=== PATIENT | female | born 1995 | race Caucasian/White ===

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

== ENCOUNTER 2017-05-13 11:03 | Emergency (ER) | payer OTHER ==
[2017-05-13 11:25] VITALS: BP 134/74; PULSE 110; RESP 18; TEMP 97.9
--- NOTE | 2017-05-13 12:22 | ED ---
Lower Extremity Injury HPI - General Chief Complaint: Extremity Injury, Lower Stated Complaint: LEFT HIP/LEG PAIN Time Seen by Provider: 05/13/17 11:56 Source: patient, RN notes reviewed, old records reviewed Mode of arrival: ambulatory Limitations: no limitations - History of Present Illness Initial Comments: 22-year-old female presents emergency Department chief complaint of left hip and pelvis pain. Patient reports that she's been having the pain for the past 4 days. She went to her chiropractor who did some "adjustments". Patient reports that she is not feeling any better after that. She reports her chiropractors concerned also because she's been having prolonged vaginal bleeding. Patient reports that she's been having continuous vaginal bleeding for the past few months. Patient is concerned of possible ovarian cyst. Denies any nausea or vomiting. Denies any dysuria or vaginal discharge. She reports that her left hip pain and groin pain seems worse with movement. No x- rays were completed a chiropractor. Patient reports that the pain is worse with standing. Denies any peripheral paresthesias. Patient denies any recent fever, chills, shortness of breath, chest pain, back pain, abdominal pain, nausea vomiting, numbness or tingling, dysuria or hematuria, constipation or diarrhea, headaches or visual changes, or any other current symptoms - Related Data Previous Rx's Medication Instructions Recorded Ibuprofen [Motrin] 600 mg PO Q6HR PRN #20 tab 05/13/17 Allergies Allergy/AdvReac Type Severity Reaction Status Date / Time latex Allergy Rash/Hives Verified 05/13/17 12:19 Review of Systems ROS Statement: Those systems with pertinent positive or pertinent negative responses have been documented in the HPI. ROS Other: All systems not noted in ROS Statement are negative. Past Medical History Past Medical History: No Reported History History of Any Multi-Drug Resistant Organisms: MRSA Date of last positivie culture/infection: 07/31/15 MDRO Source:: Buttock Past Surgical History: Adenoidectomy, Tonsillectomy Past Anesthesia/Blood Transfusion Reactions: No Reported Reaction Past Psychological History: No Psychological Hx Reported Smoking Status: Current every day smoker Past Alcohol Use History: None Reported Past Drug Use History: None Reported - Past Family History Mother Family Medical History: No Reported History General Exam - General Exam Comments Initial Comments: His is a 22-year-old female. No distress. Limitations: no limitations General appearance: alert, in no apparent distress Head exam: Present: atraumatic, normocephalic, normal inspection Eye exam: Present: normal appearance, PERRL, EOMI. Absent: scleral icterus, conjunctival injection, periorbital swelling ENT exam: Present: normal exam, mucous membranes moist Neck exam: Present: normal inspection. Absent: tenderness, meningismus, lymphadenopathy Respiratory exam: Present: normal lung sounds bilaterally. Absent: respiratory distress, wheezes, rales, rhonchi, stridor Cardiovascular Exam: Present: regular rate, normal rhythm, normal heart sounds. Absent: systolic murmur, diastolic murmur, rubs, gallop, clicks GI/Abdominal exam: Present: soft, normal bowel sounds, other (Patient has a minimal left lower quadrant tenderness on exam.). Absent: distended, tenderness , guarding, rebound, rigid Extremities exam: Present: normal inspection, full ROM, normal capillary refill. Absent: tenderness, pedal edema, joint swelling, calf tenderness Left Hip exam: Present: normal inspection, full ROM, tenderness (Patient reports tenderness and pain with range of motion of her hip. She does have full range of motion.) Upper Leg exam: Present: normal inspection, full ROM Knee exam: Present: normal inspection, full ROM Lower Leg exam: Present: normal inspection, full ROM Back exam: Present: normal inspection Neurological exam: Present: alert, oriented X3, CN II-XII intact Psychiatric exam: Present: normal affect, normal mood Skin exam: Present: warm, dry, intact, normal color. Absent: rash Course Vital Signs 05/13/17 11:21 Temperature 97.9 F Pulse Rate 110 H Respiratory 18 Rate Blood Pressure 134/74 O2 Sat by Pulse 100 Oximetry Medical Decision Making - Medical Decision Making 22-year-old female presents emergency Department chief complaint of left hip and pelvis pain. Patient reports that she's been having the pain for the past 4 days. She went to her chiropractor who did some "adjustments". Patient reports that she is not feeling any better after that. She reports her chiropractors concerned also because she's been having prolonged vaginal bleeding. Patient reports that she's been having continuous vaginal bleeding for the past few months. Patient is concerned of possible ovarian cyst. Denies any nausea or vomiting. Denies any dysuria or vaginal discharge. She reports that her left hip pain and groin pain seems worse with movement. Patient hip placed through full ROM testing, no pain with passive movement. Patient has minimal LLQ tenderness. COncern for prolonged bleeding and tenderness I completed US. US shows evidence of right ovarian cyst. No left Cyst. No uterine abnormalities. Left hip xray and pelvis is normal. No deformity. Discussed likely musclulaskeletal related and from within the labrum of patient hip joint. Urinalysis is negative is well. Discussed antiinflammatory medication and follow up with PCP. REturn parameters discussed. - Lab Data Lab Results 05/13/17 Range/Units 12:37 Urine Color Yellow Urine Appearance Clear (Clear) Urine pH 5.5 (5.0-8.0) Ur Specific [place] 1.017 (1.001-1.035) Urine Protein Negative (Negative) Urine Glucose (UA) Negative (Negative) Urine Ketones Negative (Negative) Urine Blood Negative (Negative) Urine Nitrite Negative (Negative) Urine Bilirubin Negative (Negative) Urine Urobilinogen <2.0 (<2.0) mg/dL Ur Leukocyte Esterase Negative (Negative) - Radiology Data Radiology results: report reviewed complex fluid within endometrial canal, may represent blood. Right ovarian cyst. PElvis and hip X-ray are negative . Disposition Clinical Impression: Strain of left hip Disposition: HOME SELF-CARE Condition: Good Instructions: Hip Pain (ED) Additional Instructions: Patient advised to follow-up with primary care provider. Advised to do warm compresses over the area. Passive stretching encourage. Return to the emergency department if any alarming signs or symptoms occur. Prescriptions: Ibuprofen [Motrin] 600 mg PO Q6HR PRN #20 tab PRN Reason: Pain Referrals: Celina Vences MD [Primary Care Provider] - 1-2 days Levar Navarro DO [Doctor of Osteopathic Medicine] - 1-2 days Time of Disposition: 13:45
--- NOTE | 2017-05-13 12:36 | XR ---
EXAMINATION TYPE: XR Hip LT and AP Pelvis , 3 VIEWS DATE OF EXAM ORDERED: 05/13/2017 HISTORY: Pain. COMPARISON: None. FINDINGS: Osseous structures about the pelvis are normal. No fracture, dislocation or other acute os seous lesion is seen. Both hip joints appear well maintained. IMPRESSION: NORMAL STUDY.
[2017-05-13 12:41] LABS: Appearance,Urine Clear (Clear); Bilirubin,Urine Negative (Negative); Blood,Urine Negative (Negative); Color,Urine Yellow; Glucose,Urine (UA) Negative (Negative); Ketones,Urine Negative (Negative); Leukocyte Esterase,Urine Negative (Negative); Nitrite,Urine Negative (Negative); PH, Urine 5.5 (5.0-8.0); Protein,Urine Negative (Negative); Specific Gravity,Urine 1.017 (1.001-1.035); Urobilinogen,Urine <2.0 mg/dL (<2.0)
--- NOTE | 2017-05-13 13:30 | US ---
EXAMINATION TYPE: US transvaginal DATE OF EXAM: 05/13/2017 COMPARISON: NONE CLINICAL HISTORY: Pain. Left pelvic/hip/leg pain x 1 week that has gotten worse in the past few days, vaginal bleeding for the past 10 months ever since patient gave in July 2016, 1, para 1 TECHNIQUE: Transvaginal (TV) ER exam Date of LMP: Unknown EXAM MEASUREMENTS: Uterus: 8.5 x 4.1 x 5.5 cm Endometrial Stripe: 0.3 cm Right Ovary: 4.3 x 3.5 x 4.2 cm Left Ovary: 2.5 x 1.8 x 2.0 cm 1. Uterus: anteverted, wnl 2. Endometrium: complex fluid within fundal portion of endo with 1.1cm hyperechoic non vascular area , ??? blood products vs. other 3. Right Ovary: 2.9 x 3.0 x 2.9cm cyst 4. Left Ovary: wnl Spectral, color and waveform doppler imaging shows good arterial and venous flow within the ovaries ; there is no evidence for ovarian torsion. 5. Bilateral Adnexa: wnl 6. Posterior cul-de-sac: small amount of free fluid IMPRESSION: 1. COMPLEX FLUID WITHIN THE ENDOMETRIAL CANAL MAY REPRESENT BLOOD. 2. RIGHT OVARIAN CYST.
== END 2017-05-13 14:05 | disposition home or self-care (01) ==
LOC: EC 11:03
DX: S76.012A Strain of muscle, fascia and tendon of left hip, initial encounter (principal); N83.201 Unspecified ovarian cyst, right side; F17.200 Nicotine dependence, unspecified, uncomplicated; Z86.14 Personal history of Methicillin resistant Staphylococcus aureus infection; Z91.040 Latex allergy status; X58.XXXA Exposure to other specified factors, initial encounter
CPT/HCPCS: 73502; 76830; 81003; 87086; 93975; 99284

== ENCOUNTER 2019-12-30 10:51 | Outpatient (CLI) | payer OTHER ==
[2019-12-30 13:00] VITALS: BP 118/71; PULSE 81; RESP 20; TEMP 98.4
--- NOTE | 2019-12-30 18:33 | P.MSEPDOC ---
Presenting Problems - Arrival Data Date of Arrival on Unit: 12/30/19 Time of Arrival on Unit: 10:54 Mode of Transport: Ambulatory - Complaint OB-Reason for Admission/Chief Complaint: Other Comment: pt arrived c/o abd discomfort and discomfort in her legs Medical History - Information : 2 Para: 1 Term: 1 : 0 Abortions: Spontaneous or Elective: 0 Number of Living Children: 1 - Gestational Age Gestational Age by EARNESTINE (wks/days): 20 Weeks and 5 Days Review of Systems - Review of Systems Constitutional: No problems Breast: No problems ENT: No problems Cardiovascular: No problems Respiratory: No problems Gastrointestinal: No problems Genitourinary: No problems Musculoskeletal: No problems Neurological: No problems Skin: No problems Vital Signs - Temperature Temperature: 98.4 F Temperature Source: Oral - Pulse Right Brachial Pulse Rate: 81 Pulse Assessment Method: Automatic Cuff - Respirations Respiratory Rate: 20 Oxygen Delivery Method: Room Air O2 Sat by Pulse Oximetry: 98 - Blood Pressure Right Arm Blood Pressure: 118/71 Blood Pressure Mean: 86 Blood Pressure Source: Automatic Cuff Medical Screen Scoring (Pre) - Cervical Exam Dilation: Exam Deferred Effacement: Exam Deferred Membranes: Intact - Uterine Contractions Frequency: N/A Duration: N/A Intensity: N/A - Maternal Vital Signs Maternal Temperature: N/A Signs of Preeclampsia: N/A Maternal Respirations: N/A - Maternal Trauma Maternal Trauma: N/A - Assessment - Baby A Baseline FHR: 136 Position: N/A Station: N/A - Total Score - Baby A Total Score - Baby A: 0 - Total Score - Baby B Total Score - Baby B: 0 - Total Score - Baby C Total Score - Baby C: 0 - Level of Risk - Baby A Level of Risk - Baby A: Low (0-5) - Level of Risk - Baby B Level of Risk - Baby B: Low (0-5) - Level of Risk - Baby C Level of Risk - Baby C: Low (0-5) Physician Notification (Pre) - Physician Notified Physician Notified Date: 12/30/19 Physician Notified Time: 12:42 New Order Received: Yes - Notification Comment Comment: send pt to the ER for further evualtion on leg pain Disposition - Disposition OB Disposition: Transfer to other dept./facility, Discharge to home Discharge Date: 12/30/19 Discharge Time: 12:50 I agree with the RN Medical Screening Exam: Yes Risk & Benefit of care provided described in d/c instruction: Yes Diagnosis: FALSE LABOR BEFORE 37 COMPLETED WEEKS OF GEST, SECOND TRI (Patient presented with complaints of lower pelvic discomfort and also leg pain. Obstetrical evaluation shows no evidence of labor, therefore patient was sent to the emergency department for evaluation of her leg complaints to rule out DVT.)
== END 2019-12-30 12:50 | disposition home or self-care (01) ==
LOC: FBPOP 10:51
PROVIDERS: ATTEND Obstetrics & Gynecology
DX: O47.02 False labor before 37 completed weeks of gestation, second trimester (principal); Z3A.20 20 weeks gestation of pregnancy
CPT/HCPCS: 99213

== ENCOUNTER 2019-12-30 12:53 | Emergency (ER) | payer BC, OTHER ==
[2019-12-30] MEDS ORDERED: SODIUM CHLORIDE 0.9% 1,000 ML IV STA (14:05)
--- NOTE | 2019-12-30 14:11 | ED ---
Abdominal Pain HPI - General Chief Complaint: Abdominal Pain Stated Complaint: Leg& Abd Pain-20 wks Time Seen by Provider: 12/30/19 13:53 Source: patient Mode of arrival: ambulatory Limitations: no limitations - History of Present Illness Initial Comments: 24-year-old female patient presents to the emergency department today for evaluation of abdominal pain. Patient is 20 weeks , . She was evaluated in the labor and delivery unit had monitoring for 2 hours, then was discharged. She reports that the pain is mostly over her lower abdomen. States it is sharp in nature. States she is having some low back pain with this. Reports some nausea with no episodes of vomiting. States she is having normal soft bowel movements. She denies any fever or chills. Denies hematuria, dysuria, urinary frequency, urinary urgency. Denies history of abdominal surgery. Patient denies any recent rash, cough, shortness of breath, chest pain, numbness, tingling, dizziness, weakness, headache, visual changes, or any other complaints. - Related Data Home Medications Medication Instructions Recorded Confirmed Pnv No.95/Ferrous Fum/Folic AC 1 each PO 12/30/19 [ Multivitamin Tablet] Previous Rx's Medication Instructions Recorded Ondansetron [Zofran ODT] 4 mg PO Q8HR PRN #10 tab 12/30/19 Tamsulosin HCl [Flomax] 0.4 mg PO DAILY #7 cap 12/30/19 Allergies Allergy/AdvReac Type Severity Reaction Status Date / Time latex Allergy Rash/Hives Verified 12/30/19 11:08 Review of Systems ROS Statement: Those systems with pertinent positive or pertinent negative responses have been documented in the HPI. ROS Other: All systems not noted in ROS Statement are negative. Past Medical History Past Medical History: No Reported History History of Any Multi-Drug Resistant Organisms: MRSA Date of last positivie culture/infection: 07/31/15 MDRO Source:: Buttock Past Surgical History: Adenoidectomy, Tonsillectomy Past Anesthesia/Blood Transfusion Reactions: No Reported Reaction Past Psychological History: No Psychological Hx Reported Smoking Status: Current every day smoker - Past Family History Mother Family Medical History: No Reported History General Exam Limitations: no limitations General appearance: alert, in no apparent distress, other (This is a well- developed, well-nourished adult female patient in no acute distress. Vital signs upon presentation are temperature 97.8F, pulse 72, respirations 16, blood pressure 102/68, pulse ox 100% on room air.) Eye exam: Present: normal appearance, PERRL, EOMI. Absent: scleral icterus, conjunctival injection, periorbital swelling ENT exam: Present: normal exam, normal oropharynx, mucous membranes moist Respiratory exam: Present: normal lung sounds bilaterally. Absent: respiratory distress, wheezes, rales, rhonchi, stridor Cardiovascular Exam: Present: regular rate, normal rhythm, normal heart sounds. Absent: systolic murmur, diastolic murmur, rubs, gallop, clicks GI/Abdominal exam: Present: soft, normal bowel sounds. Absent: distended, tenderness, guarding, rebound, rigid Back exam: Present: CVA tenderness (R). Absent: CVA tenderness (L) Neurological exam: Present: alert, oriented X3, CN II-XII intact Psychiatric exam: Present: normal affect, normal mood Skin exam: Present: warm, dry, intact, normal color. Absent: rash Course Vital Signs 12/30/19 12/30/19 12:57 16:47 Temperature 97.8 F 98.0 F Pulse Rate 72 75 Respiratory 16 18 Rate Blood Pressure 102/68 110/70 O2 Sat by Pulse 100 99 Oximetry Medical Decision Making - Medical Decision Making 24-year-old female patient presents to the emergency department today for evaluation of abdominal pain. Patient is 20 weeks , and was evaluated in labor and delivery for monitoring for 2 hours prior to coming down. Here labs are performed, urinalysis was obtained and showed presence of red blood cells. We did perform ultrasound of the fetus which was negative. There is ultrasound of the kidneys, ureters, bladder which did show right-sided hydronephrosis. Giving the presence of blood in the urine as well as hydronephr osis on the right we will consider kidney stone as a cause for her symptoms. To be started on Flomax given Zofran and instructed to increase fluids. She is instructed follow up with her primary care physician, SCIENT[facility] WR[facility], and urology for further evaluation as soon as possible. Return parameters were discussed in detail. She verbalizes understanding and agrees with this plan. - Lab Data Result diagrams: 12/30/19 14:19 12/30/19 14:19 Lab Results 12/30/19 12/30/19 12/30/19 Range/Units 14:19 14:19 14:33 WBC 11.5 H (3.8-10.6) k/uL RBC 4.40 (3.80-5.40) m/uL Hgb 14.0 (11.4-16.0) gm/dL Hct 42.9 (34.0-46.0) % MCV 97.4 (80.0-100.0) fL MCH 31.8 (25.0-35.0) pg MCHC 32.7 (31.0-37.0) g/dL RDW 12.9 (11.5-15.5) % Plt Count 261 (150-450) k/uL Neutrophils % 74 % Lymphocytes % 20 % Monocytes % 4 % Eosinophils % 0 % Basophils % 1 % Neutrophils # 8.5 H (1.3-7.7) k/uL Lymphocytes # 2.3 (1.0-4.8) k/uL Monocytes # 0.4 (0-1.0) k/uL Eosinophils # 0.0 (0-0.7) k/uL Basophils # 0.1 (0-0.2) k/uL Sodium 135 L (137-145) mmol/L Potassium 3.9 (3.5-5.1) mmol/L Chloride 104 (98-107) mmol/L Carbon Dioxide 23 (22-30) mmol/L Anion Gap 8 mmol/L BUN 7 (7-17) mg/dL Creatinine 0.40 L (0.52-1.04) mg/dL Est GFR (CKD-EPI)AfAm >90 (>60 ml/min/1.73 sqM) Est GFR (CKD-EPI)NonAf >90 (>60 ml/min/1.73 sqM) Glucose 72 L (74-99) mg/dL Calcium 9.2 (8.4-10.2) mg/dL Total Bilirubin 0.4 (0.2-1.3) mg/dL AST 26 (14-36) U/L ALT 13 (4-34) U/L Alkaline Phosphatase 61 (38-126) U/L Total Protein 7.2 (6.3-8.2) g/dL Albumin 4.4 (3.5-5.0) g/dL Lipase 88 (23-300) U/L Urine Color Yellow Urine Appearance Cloudy H (Clear) Urine pH 7.0 (5.0-8.0) Ur Specific [place] 1.013 (1.001-1.035) Urine Protein Negative (Negative) Urine Glucose (UA) Negative (Negative) Urine Ketones Negative (Negative) Urine Blood Large H (Negative) Urine Nitrite Negative (Negative) Urine Bilirubin Negative (Negative) Urine Urobilinogen <2.0 (<2.0) mg/dL Ur Leukocyte Esterase Small H (Negative) Urine RBC >182 H (0-5) /hpf Urine WBC 4 (0-5) /hpf Ur Squamous Epith Cells 5 H (0-4) /hpf Amorphous Sediment Rare H (None) /hpf Urine Bacteria Rare H (None) /hpf Urine Mucus Rare H (None) /hpf - Radiology Data Radiology results: report reviewed Ultrasound of the fetus was obtained. Report reviewed in its entirety. Impression by Dr. Pearson shows single live intrauterine with establish gestational age of 20 weeks 5 days. Ultrasound by ADAN saleh [address] in the at the 52nd percentile for weight. Note that this was not performed as a scan for anatomy. Ultrasound of the kidneys, renal, bladder was performed. Report is reviewed in its entirety. Impression by Dr. Ornelas and shows mild right hydronephrosis. Debris is within the right renal collecting system. Disposition Clinical Impression: Kidney stone complicating , Abdominal pain Disposition: HOME SELF-CARE Condition: Good Instructions (If sedation given, give patient instructions): Kidney Stones (ED), Abdominal Pain (ED) Additional Instructions: Increase fluids. Rest. Take medications as directed. Take Tylenol for pain control. Follow-up with your SCIENTIFIC WRITER and the urologist for recheck as soon as possible. Follow up with your primary care physician for recheck in 1-2 days. Return to the emergency department immediately for any new, worsening, or concerning symptoms. Prescriptions: Tamsulosin HCl [Flomax] 0.4 mg PO DAILY #7 cap Ondansetron [Zofran ODT] 4 mg PO Q8HR PRN #10 tab PRN Reason: Nausea Is patient prescribed a controlled substance at d/c from ED?: No Referrals: Celina Vences MD [Primary Care Provider] - 1-2 days Reddy Gonzales MD [STAFF PHYSICIAN] - 1-2 days Time of Disposition: 16:40
[2019-12-30 14:55] LABS: Basophils # (A) 0.1 k/uL (0-0.2); Basophils % (A) 1 %; Eosinophils % (A) 0 %; HCT 42.9 % (34.0-46.0); Lymphocytes # (A) 2.3 k/uL (1.0-4.8); Lymphocytes % (A) 20 %; MCH 31.8 pg (25.0-35.0); MCHC 32.7 g/dL (31.0-37.0); MCV 97.4 fL (80.0-100.0); Monocytes # (A) 0.4 k/uL (0-1.0); Monocytes % (A) 4 %; Neutrophils # (A) 8.5 k/uL (1.3-7.7); Neutrophils % (A) 74 %; Platelet Count 261 k/uL (150-450); RDW 12.9 % (11.5-15.5); WBC 11.5 k/uL (3.8-10.6)
[2019-12-30 15:06] LABS: ALT 13 U/L (4-34); AST 26 U/L (14-36); African American GFR (CKD) >90 (>60 ml/min/1.73 sqM); Albumin 4.4 g/dL (3.5-5.0); Alkaline Phosphatase 61 U/L (38-126); Anion Gap 8 mmol/L; Blood Urea Nitrogen 7 mg/dL (7-17); Calcium 9.2 mg/dL (8.4-10.2); Carbon Dioxide 23 mmol/L (22-30); Chloride 104 mmol/L (98-107); Glucose 72 mg/dL (74-99); Non-African American GFR(CKD) >90 (>60 ml/min/1.73 sqM); Potassium 3.9 mmol/L (3.5-5.1); Sodium 135 mmol/L (137-145); Total Bilirubin 0.4 mg/dL (0.2-1.3); Total Protein 7.2 g/dL (6.3-8.2)
[2019-12-30 15:37] LABS: Amorphous Sediment,Urine Rare /hpf; Appearance,Urine Cloudy (Clear); Bacteria,Urine Rare /hpf; Bilirubin,Urine Negative (Negative); Blood,Urine Large (Negative); Color,Urine Yellow; Glucose,Urine (UA) Negative (Negative); Ketones,Urine Negative (Negative); Leukocyte Esterase,Urine Small (Negative); Mucus,Urine Rare /hpf; Nitrite,Urine Negative (Negative); Protein,Urine Negative (Negative); RBC,Urine >182 /hpf (0-5); Specific Gravity,Urine 1.013 (1.001-1.035); Squamous Epithelial Cell,Urine 5 /hpf (0-4); Urobilinogen,Urine <2.0 mg/dL (<2.0); WBC,Urine 4 /hpf (0-5)
--- NOTE | 2019-12-30 15:38 | US ---
EXAMINATION TYPE: US OB >= 14 wk fetus DATE OF EXAM: 12/30/2019 COMPARISON: None CLINICAL HISTORY: 24-year-old female Abd pain; 20 weeks; Discomfort TECHNIQUE: Transabdominal (TA) FINDINGS: GESTATIONAL AGE / DATING Physician Established: (20 weeks/5 days) EDC: 05/13/2020 Dates by Current Scan: (20 weeks/1 days) EDC: 05/17/2020 Beta HCG (if available): Not available at this time SURVEY IUP: Single PLACENTA: Posterior PREVIA: No Previa NGUYEN: 13.6 cm Normal CERVICAL LENGTH (transabdominal: norm > 3.0cm): 4.0 cm BIOMETRY PRESENTATION: Breech BPD: 4.6 cm 19 weeks / 5 days HC: 17.4 cm 19 weeks / 6 days AC: 16.7 cm 21 weeks / 5 days FL: 3.2 cm 20 weeks / 1 days ESTIMATED WEIGHT IN GRAMS: 380.5 grams ESTIMATED WEIGHT IN LBS/OZ: 0 lbs. 13 oz. WEIGHT PERCENTAGE BASED ON ESTABLISHED DATES: 51.7% HC/AC: 1.0 Abnormal FL/AC: 19.4 HEART RATE: 138 bpm RHYTHM: Normal Heel Seat Fitter Machine notes: Single live IUP measuring 20 weeks 1 day IMPRESSION: 1. Single live intrauterine with established gestational age of 20 weeks 5 days. Current ul trasound biometry is concordant at 20 weeks 1 day placing the at the 52nd percentile for we ight. 2. Note that this was not performed as a scan for anatomy.
--- NOTE | 2019-12-30 16:32 | US ---
EXAMINATION TYPE: US kidneys/renal and bladder DATE OF EXAM: 12/30/2019 COMPARISON: NONE CLINICAL HISTORY: Rt flank pain/hematuria. Patient is 20 weeks EXAM MEASUREMENTS: Right Kidney: 10.8 x 5.2 x 6.8 cm Left Kidney: 10.4 x 5.9 x 4.8 cm Right Kidney: Hydronephrosis with mobile debris visualized within Left Kidney: No hydronephrosis or masses seen Bladder: wnl Bilateral Jets seen: No jets visualized No nephrolithiasis is seen. No masses are identified. The urinary bladder is anechoic. IMPRESSION: 1. Mild right hydronephrosis. Debris is within the right renal collecting system.
[2019-12-30 16:52] VITALS: BP 110/70; PULSE 75; RESP 18; TEMP 98
== END 2019-12-30 16:52 | disposition home or self-care (01) ==
LOC: EC 12:53
DX: O99.89 Other specified diseases and conditions complicating pregnancy, childbirth and the puerperium (principal); R31.9 Hematuria, unspecified; N13.2 Hydronephrosis with renal and ureteral calculous obstruction; O99.331 Smoking (tobacco) complicating pregnancy, first trimester; Z3A.20 20 weeks gestation of pregnancy; F17.200 Nicotine dependence, unspecified, uncomplicated; Z91.040 Latex allergy status
CPT/HCPCS: 36415; 76770; 76805; 80053; 81001; 83690; 85025; 96360; 96361; 99284

== ENCOUNTER 2020-05-10 06:46 | Inpatient (IN) | payer BC, OTHER ==
[2020-05-10] MEDS ORDERED: LACTATED RINGERS 1,000 ML IV ONE (07:08)
[2020-05-10] MEDS ORDERED: CITRIC ACID-SODIUM CITRATE 15 ML CUP PO ONE (07:08)
[2020-05-10 07:20] LABS: Basophils # (A) 0.1 k/uL (0-0.2); Basophils % (A) 1 %; Eosinophils # (A) 0.1 k/uL (0-0.7); Eosinophils % (A) 1 %; HCT 37.5 % (34.0-46.0); HGB 12.7 gm/dL (11.4-16.0); Lymphocytes # (A) 2.2 k/uL (1.0-4.8); Lymphocytes % (A) 22 %; MCH 30.5 pg (25.0-35.0); MCHC 33.7 g/dL (31.0-37.0); MCV 90.5 fL (80.0-100.0); Mean Platelet Volume 7.8; Monocytes # (A) 0.7 k/uL (0-1.0); Monocytes % (A) 7 %; Neutrophils # (A) 6.6 k/uL (1.3-7.7); Neutrophils % (A) 67 %; Platelet Count 287 k/uL (150-450); RBC 4.15 m/uL (3.80-5.40); RDW 12.6 % (11.5-15.5); WBC 9.9 k/uL (3.8-10.6)
[2020-05-10] MEDS ORDERED: PHENYLEPHRINE 10 MG/ML VIAL ONE (07:35)
[2020-05-10] MEDS ORDERED: KETOROLAC 15 MG/ML 1 ML VIAL ONE (07:35)
[2020-05-10] MEDS ORDERED: MORPHINE SULFATE (PF) 0.3 MG/0.3 ML SYR ONE (07:35)
[2020-05-10] MEDS ORDERED: ONDANSETRON 4 MG/2 ML VIAL ONE (07:35)
[2020-05-10] MEDS ORDERED: OXYTOCIN 10 UNIT/ML 1 ML VIAL ONE (07:35)
[2020-05-10] MEDS ORDERED: ONDANSETRON 4 MG/2 ML VIAL IVP PRN (08:31)
[2020-05-10] MEDS ORDERED: diphenhydrAMINE 50 MG/ML 1 ML VIAL IVP PRN (08:31)
[2020-05-10] MEDS ORDERED: METOCLOPRAMIDE 5 MG/ML 2 ML VIAL IVP PRN (08:31)
[2020-05-10] MEDS ORDERED: SIMETHICONE 80 MG CHEWABLE PO PRN (08:31)
[2020-05-10] MEDS ORDERED: ACETAMINOPHEN TAB 325 MG TAB PO PRN (08:31)
[2020-05-10] MEDS ORDERED: ZOLPIDEM 5 MG TAB PO PRN (08:31)
[2020-05-10] MEDS ORDERED: NALOXONE 0.4 MG/ML 1 ML VIAL IV PRN (08:31)
[2020-05-10] MEDS ORDERED: diphenhydrAMINE 25 MG CAP PO PRN (08:31)
[2020-05-10] MEDS ORDERED: LANOLIN CREAM 5 GM TUBE TOPICAL PRN (08:31)
[2020-05-10] MEDS ORDERED: OXYTOCIN 20 UNITS/1000 ML NS 1,000 ML IV SCH (08:45)
[2020-05-10] MEDS ORDERED: LACTATED RINGERS 1,000 ML IV SCH (08:45)
--- NOTE | 2020-05-10 08:55 | P.HPOB ---
History of Present Illness H&P Date: 05/10/20 Chief Complaint: Contractions, scheduled for recent HSV This patient is a 25-year-old 2 para 1 female estimated date of confinement 05/13/2019 estimated gestational age 39-4/7 weeks who presents to labor and delivery with complaints of contractions. Patient's care is per Dr. Nick is such that she had a recent genital HSV outbreak and was sched uled for primary section tomorrow. Patient states that earlier this morning she started having regular painful contractions. Patient was 1 cm dilated is now 4 cms dilated in active labor. Patient's also appears to be complicated by renal calculi. She did see Dr. Gonzales during this . Review of Systems Genitourinary: Reports Menstruation: Reports amenorrhea Past Medical History Past Medical History: No Reported History Additional Past Medical History / Comment(s): HSV with this History of Any Multi-Drug Resistant Organisms: MRSA Date of last positivie culture/infection: 07/31/15 MDRO Source:: Buttock Past Surgical History: Adenoidectomy, Tonsillectomy Past Anesthesia/Blood Transfusion Reactions: No Reported Reaction Past Psychological History: Anxiety Smoking Status: Never smoker Past Alcohol Use History: None Reported Additional Past Alcohol Use History / Comment(s): quit smoking 12/2019, smoked for 5 yrs Past Drug Use History: None Reported - Past Family History Mother Family Medical History: No Reported History Medications and Allergies Home Medications Medication Instructions Recorded Confirmed Type Pnv No.95/Ferrous Fum/Folic AC 1 each PO DAILY 12/30/19 05/10/20 History [ Multivitamin Tablet] Allergies Allergy/AdvReac Type Severity Reaction Status Date / Time latex Allergy Rash/Hives Verified 05/05/20 10:07 Exam Vital Signs Temp Pulse Resp BP Pulse Ox 05/10/20 07:09 98.4 F 97 18 128/86 99 05/10/20 06:59 96.9 F L 130 H 16 131/82 99 Intake and Output 05/09/20 05/10/20 05/10/20 22:59 06:59 14:59 Other: Weight 86.183 kg 86.183 kg - OBG Physical Exam Abdomen: bowel sounds normal, no diffuse tenderness, no bruit present, no guarding noted, no hepatomegaly, no splenomegaly, no mass Cervix: no lesion (Cervix on admission is 4 cm dilated.), no discharge Uterus: enlarged Results labs show she is O positive, rubella immune, RPR nonreactive, hepatitis B negative, group B strep was negative, patient has had a positive HSV culture during this . Most recent ultrasound showed the baby to be 6 pounds which is a 64th percentile. Result Diagrams: 05/10/20 07:14 Assessment and Plan Assessment: This is a pleasant 25-year-old 2 para 1 female 39-4/7 weeks gestation with recent genital HSV infection and scheduled for tomorrow who is now in active labor. Plan is to proceed with primary section as scheduled. Patient I discussed the surgery previously and risks including risks of infection, bleeding, possible injury bowel, bladder, vessels, and/or other organs. All the patient's questions are answered written consent is obtained. (1) 39 weeks gestation of Current Visit: Yes Status: Acute Code(s): Z3A.39 - 39 WEEKS GESTATION OF SNOMED Code(s): 57746269 (2) Normal labor Current Visit: No Status: Acute Code(s): O80 - ENCOUNTER FOR FULL-TERM UNCOMPLICATED DELIVERY; Z37.9 - OUTCOME OF DELIVERY, UNSPECIFIED SNOMED Code(s): 61596464 (3) HSV (herpes simplex virus) infection Current Visit: Yes Status: Acute Code(s): B00.9 - HERPESVIRAL INFECTION, UNSPECIFIED SNOMED Code(s): 89427181
--- NOTE | 2020-05-10 09:02 | P.OP ---
Date of Procedure: 05/10/20 Preoperative Diagnosis: #1: 39-4/7 weeks . #2: Active labor. #3: Recent genital HSV infection with planned Postoperative Diagnosis: Same, macrosomia Procedure(s) Performed: Primary low transverse section Anesthesia: spinal Surgeon: Juan M Stevenson Deckhand Maintenance #1: Meaghan Gomes Estimated Blood Loss (ml): 800 Pathology: none sent Condition: stable Disposition: floor Indications for Procedure: Please see dictated H&P for intimate details of this patient's admission. In brief summary this is a pleasant 25-year-old 2 para 1 female 39-4/7 weeks gestation who is admitted to labor and delivery in active labor. Patient has had a recent HSV infection documented by Dr. Nick and has a scheduled C- section for tomorrow. Plan is to proceed with section for delivery at this time. Patient does understand the surgery and risks and risks of infection, bleeding, possible injury to bowel, bladder, vessels, and/or other organs. All the patient's questions are answered written consent is obtained. Operative Findings: This is a vigorous viable male Apgars 9 and 9 delivery time was 0753 hours. has spontaneous respiration and cry and grossly appears normal Description of Procedure: This patient has a Cash catheter placed to straight drain. She is subsequently taken to the operating room where she sat up and spinal anesthetic is adminis tered without incident. With an adequate level of anesthesia and the appropriate timeout done, she has an abdominal prep and drape. Scalpels and taken Pfannenstiel skin incision is then made. A second scalpel is taken down to the fascia and the fascia scored with a knife. Fascial incision extended bilaterally using Ferrer scissors. Fascia is dissected off the rectus muscles sharply. Rectus muscles are the peritoneum identified and entered sharply. Peritoneal incision extended superior and inferior without difficulty. Bladder blade is then placed. Bladder peritoneum was taken sharply off the lower uterine segment. Scalpels then taken low transverse uterine incision is made. Using a hemostat I enter the uterine cavity bluntly and there is loss of clear fluid. Uterine incision then extended bluntly. With fundal pressure the 's head is delivered through the incision atraumatically. Mouth and nares are bulb suctioned. There is no evidence of nuchal cord. With fundal pressure we have delivery the rest of this infant's body. This is a vigorous viable male infant Apgars 9 and 9 delivery time is 0753 hours. Infant has spontaneous respiration and good cry and grossly appears normal. weight is 9 lbs. 7 oz. or 4280 g. Umbilical cord is doubly clamped and cut appears to be trivascular. The is handed off to the nurses in attendance. The placen ta is then manually extracted intact. Uterus is then externalized and the uterine incision demarcated with Sanches clamps. Uterine incision then closed using 0 Vicryl running locked fashion 2 layers. Excellent hemostasis is noted. Latter peritoneum was then closed using a 3-0 Vicryl. Excess fluid is removed from the abdomen and pelvis. Uterus tubes and ovaries appear normal for term gestation. Uterus placed back into the abdomen. Parietal peritoneum was then identified and closed using 0 Vicryl running fashion. Rectus muscles reapproximated in 0 Vicryl interrupted fashion. Fascial incision is then closed using 0 PDS in a running fashion. Fascial incision is intact and hemostatic. Subcutaneous tissues and closed using a 3-0 Vicryl. Skin is and closed using lenin. Sterile dressing is applied. All counts correct 3. There are no complications. Infant and mother taken the birthing suite in satisfactory condition.
[2020-05-10] MEDS: LACTATED RINGERS 1,000 ML IV SCH ×2 (09:04→15:47)
[2020-05-10] MEDS: KETOROLAC 15 MG/ML 1 ML VIAL IVP PRN ×2 (15:47→21:44)
[2020-05-10] MEDS: SENNOSIDES-DOCUSATE SODIUM 1 EACH TAB PO SCH (19:48)
[2020-05-11] MEDS: HYDROcodone/APAP 5-325MG 1 EACH TAB PO PRN ×3 (01:57→23:39)
[2020-05-11] MEDS: KETOROLAC 15 MG/ML 1 ML VIAL IVP PRN (05:14)
[2020-05-11 06:23] LABS: WBC 11.1 k/uL (3.8-10.6)
[2020-05-11 06:24] LABS: Basophils % (A) 0 %; Eosinophils # (A) 0.1 k/uL (0-0.7); Eosinophils % (A) 1 %; HCT 32.6 % (34.0-46.0); HGB 10.8 gm/dL (11.4-16.0); Lymphocytes # (A) 1.8 k/uL (1.0-4.8); Lymphocytes % (A) 16 %; MCH 30.7 pg (25.0-35.0); MCV 93.1 fL (80.0-100.0); Mean Platelet Volume 7.4; Monocytes # (A) 0.7 k/uL (0-1.0); Monocytes % (A) 6 %; Neutrophils # (A) 8.3 k/uL (1.3-7.7); Neutrophils % (A) 75 %; Platelet Count 258 k/uL (150-450); RDW 12.8 % (11.5-15.5)
--- NOTE | 2020-05-11 06:28 | P.PAINPG ---
Subjective Progress Note Date: 05/11/20 Principal diagnosis: Patient s/p yesterday with spinal anesthetic/intrathecal narcotic. Pt doing very well, with good analgesia noted overnight. Minimal side effects no aston, only very slight pruritis, managed easily. VAS ranging from 2-4 depending upon activity. Injection site looks ok, without signs of bleeding/inflammation. Post procedure pain management now turned over to OB staff. Will re-eval as needed. Kaye Nieves DO Objective - Vital Signs Vital signs: Vital Signs Temp 98.6 F 05/11/20 04:00 Pulse 94 05/11/20 04:00 Resp 16 05/11/20 04:00 BP 117/71 05/11/20 04:00 Pulse Ox 100 05/10/20 11:00 Intake & Output 05/10/20 05/10/20 05/11/20 06:59 18:59 06:59 Intake Total 300 Output Total 600 500 Balance -600 -200 Weight 86.183 kg 86.183 kg Intake: IV 300 Output: Urine 600 500 Uretheral (Cash) 300 Other: # Voids 1 - Labs CBC & Chem 7: 05/10/20 07:14 PQRS Measure Charge Sheet PQRS Narrative: Smoking Status Current every day smoker Blood Pressure [Right Arm 117/71 Sitting] Pain Intensity [Abdomen] 1 Pain Intensity 2 Pain Scale Used Numeric (1 - 10) Scale Used Numeric (1 - 10) Home Medications: Ambulatory Orders Pnv No.95/Ferrous Fum/Folic AC [ Multivitamin Tablet] 1 each PO DAILY 12/30/19 Controlled Substance Measures - Controlled Substance Measures Is patient prescribed a controlled substance at discharge?: No When asked, does pt state using other controlled substances?: No If prescribed controlled substance>3 days was MAPS reviewed?: No If Rx opioid, was Start Talking consent form obtained?: No If opioid is for acute pain is fill amount 7 days or less?: No Was information provided regarding opioid addiction?: No
[2020-05-11] MEDS: SENNOSIDES-DOCUSATE SODIUM 1 EACH TAB PO SCH ×2 (07:42→19:56)
[2020-05-11] MEDS: IBUPROFEN 600 MG TAB PO PRN ×2 (13:28→19:56)
--- NOTE | 2020-05-11 17:16 | P.PNOBGPC ---
Subjective - Subjective Principal diagnosis: Status post primary low transverse postop day #1 Interval history: Patient seen and examined. Denies nausea, vomiting, chest pain, shortness of breath or any calf pain. Her pain is controlled with Ursa and Toradol. Patient reports: Reports appetite normal, Reports voiding normally, Reports pain well controlled, Reports ambulating normally : doing well Objective - Vital Signs Latest vital signs: Vital Signs Temp Pulse Resp BP Pulse Ox 05/11/20 16:00 98 F 97 16 111/70 05/11/20 08:00 97.7 F 88 16 117/73 97 05/11/20 04:00 98.6 F 94 16 117/71 05/10/20 23:52 98.3 F 83 16 106/69 05/10/20 20:00 98.0 F 85 16 108/53 - Exam Lungs: bilateral: normal Chest: Normal S1, Normal S2 Extremities: Present: normal Abdomen: Present: normal appearance, soft. Absent: distention, tenderness Incision: Present: normal, dry, intact Uterus: Present: normal, firm - Labs Labs: Abnormal Lab Results - Last 24 Hours (Table) 05/11/20 Range/Units 06:06 WBC 11.1 H (3.8-10.6) k/uL RBC 3.50 L (3.80-5.40) m/uL Hgb 10.8 L (11.4-16.0) gm/dL Hct 32.6 L (34.0-46.0) % Neutrophils # 8.3 H (1.3-7.7) k/uL Assessment and Plan (1) HSV (herpes simplex virus) infection Current Visit: Yes Status: Acute Code(s): B00.9 - HERPESVIRAL INFECTION, UNSPECIFIED SNOMED Code(s): 56367630 (2) Status post primary low transverse section Current Visit: Yes Status: Acute Code(s): Z98.891 - HISTORY OF UTERINE SCAR FROM PREVIOUS SURGERY SNOMED Code(s): 248814854 Plan: 1. Increase ambulation 2. Regular diet 3. Pain control with by mouth pain medicines
[2020-05-12] MEDS: SENNOSIDES-DOCUSATE SODIUM 1 EACH TAB PO SCH (07:18)
[2020-05-12] MEDS: IBUPROFEN 600 MG TAB PO PRN (07:21)
[2020-05-12 08:18] VITALS: BP 108/71; PULSE 92; RESP 18; TEMP 97.8
--- NOTE | 2020-05-12 08:49 | P.DS ---
Providers Date of admission: 05/10/20 07:04 Expected date of discharge: 05/12/20 Attending physician: Saira Nick Primary care physician: Stated None - Discharge Diagnosis(es) (1) HSV (herpes simplex virus) infection Current Visit: Yes Status: Acute (2) Status post primary low transverse section Current Visit: Yes Status: Acute Hospital Course: Patient presented in labor. She underwent a primary low transverse for a recent herpes outbreak. Her postoperative course was uncomplicated. Her pain is controlled with by mouth pain medication and she is tolerating regular diet, passing flatus. Denies nausea, vomiting, chest pain, shortness of breath or any calf pain. She was discharged home postoperative day #2 in stable condition to follow-up with me in one week. Plan - Discharge Summary New Discharge Prescriptions: New Ibuprofen [Motrin] 600 mg PO Q6HR PRN #30 tab PRN Reason: Mild Pain Or Fever >= 100.5 HYDROcodone/APAP 5-325MG [[place] 5-325] 1 each PO Q4HR PRN #18 tab PRN Reason: Moderate Pain No Action Pnv No.95/Ferrous Fum/Folic AC [ Multivitamin Tablet] 1 each PO DAILY Discharge Medication List Pnv No.95/Ferrous Fum/Folic AC [ Multivitamin Tablet] 1 each PO DAILY 12/30/19 [History] HYDROcodone/APAP 5-325MG [[place] 5-325] 1 each PO Q4HR PRN #18 tab 05/12/20 [Rx] Ibuprofen [Motrin] 600 mg PO Q6HR PRN #30 tab 05/12/20 [Rx] Follow up Appointment(s)/Referral(s): Saira Nick DO [Doctor of Osteopathic Medicine] - 1 Week Discharge Disposition: HOME SELF-CARE
== END 2020-05-12 10:10 | disposition home or self-care (01) | DRG 788 ==
LOC: FBPOP 06:46 → 4FBP 07:04
PROVIDERS: ADMIT Obstetrics & Gynecology; ATTEND Obstetrics & Gynecology
PROC: 10D00Z1 Extraction of Products of Conception, Low, Open Approach (ICD-10-PCS; principal; 2020-05-10 07:53)
DX: O99.344 Other mental disorders complicating childbirth (principal); F41.9 Anxiety disorder, unspecified; O36.63X0 Maternal care for excessive fetal growth, third trimester, not applicable or unspecified; Z37.0 Single live birth; Z3A.39 39 weeks gestation of pregnancy; Z91.040 Latex allergy status
CPT/HCPCS: 59025; 85025; 86850; 86900; 86901; 99213